=== PATIENT | female | born 1970 ===

== ENCOUNTER 2019-12-21 12:53 | Outpatient (CLI) | payer OTHER, SELFPAY ==
--- NOTE | ~2019-12-21 | MR_ITS ---
EXAMINATION: MR knee RT wo con DATE: 12/21/2019 13:42 INDICATION: Right knee pain. TECHNIQUE: Magnetic resonance imaging (MRI) of the right knee was performed without intravenous contr ast. Sequences included axial PD-weighted FS FSE, coronal PD-weighted FSE and PD-weighted FS FSE, sag ittal PD-weighted FSE, and sagittal T2-weighted FS FSE. COMPARISON: Right knee radiographs 12/13/2019 FINDINGS: Medial compartment: There is a complex tear involving anterior horn, body, and posterior horn of medial meniscus. There i s deep partial thickness cartilage loss of tibial condyle involving the medial articular surface with mild subchondral edema-like signal intensity. There is full-thickness cartilage loss of femoral cond yle involving the central, medial, and posterior articular surface with mild subchondral edema-like m arrow signal intensity. There is extensive partial thickness cartilage loss of femoral condyle and ti bial condyle. Marginal osteophytes are noted. Lateral compartment: Lateral meniscus is normal. There is cartilage surface irregularity of femoral condyle and tibial con dyle. Marginal osteophytes are noted. Patellofemoral compartment: There is deep partial thickness cartilage loss of patellar medial facet and median ridge. There is fu ll-thickness cartilage loss of patellar lateral facet. There is partial-thickness cartilage loss of t rochlea, deep at the medial and lateral articular surfaces. Marginal osteophytes are noted. Ligaments and tendons: The anterior and posterior cruciate ligaments are normal. There are changes of prior sprains of media l collateral ligament and fibular collateral ligament characterized by thickening and increased signa l intensity proximally. There is moderate patellar tendinopathy. Fluid: There is a small knee joint effusion. There is trace fluid in a Toure's cyst. There is mild prepatell ar and superficial infrapatellar bursitis. There are multiple ganglion cysts adjacent to the proximal tibiofibular joint measuring up to 2.2 cm. IMPRESSION: 1. Severe chondrosis of medial and patellofemoral compartments and mild chondrosis of lateral compart ment. 2. Tear of medial meniscus. 3. Small knee joint effusion. Reviewed, dictated and finalized at location A. IMPRESSION: 1. Severe chondrosis of medial and patellofemoral compartments and mild chondro sis of lateral compartment. 2. Tear of medial meniscus. 3. Small knee joint effusion.
== END 2019-12-21 12:54 | disposition home or self-care (01) ==
PROVIDERS: PCP Family Medicine; Visit Provider Nurse Practitioner Family
DX: M25.461 Effusion, right knee (principal); S83.241A Other tear of medial meniscus, current injury, right knee, initial encounter; X58.XXXA Exposure to other specified factors, initial encounter
CPT/HCPCS: 73721